=== PATIENT | male | born 1995 | race Caucasian/White ===

== ENCOUNTER 2020-11-23 15:30 | Emergency (ER) | payer MEDICAID ==
[2020-11-23] MEDS ORDERED: Sodium Chloride 0.9% 10 ML Syringe FLUSH PRN (17:20)
--- NOTE | 2020-11-23 17:33 | EDM.PDOC ---
ED HPI GENERAL MEDICAL PROBLEM - General Chief Complaint: Gastrointestinal Problem Stated Complaint: BLOOD AND MUCUS IN STOOL/ABD PAIN Time Seen by Provider: 11/23/20 16:52 Source of Information: Reports: Patient History Limitations: Reports: No Limitations - History of Present Illness INITIAL COMMENTS - FREE TEXT/NARRATIVE: 25-year-old male presents emergency department with complaints of abdominal pain after he was seen at [facility] today. Patient states he has about a 2-1/2-year history of loose stools with blood and mucus noted. He states that 2-1/2 years ago when he was in [place] he had mucus and blood noted in his stools and he had an EGD and colonoscopy and they diagnosed him with H. pylori. He said he was treated with antibiotics for this and they told him his infection had resolved however he still has been having mucousy/bloody stools. He recently moved to [place] about 4 months ago and states that over the course of the past 2 days he has developed generalized abdominal pain specifically in the left upper and left lower quadrant and has noted more blood and mucus in his stools. He denies any recent fever chills however he has had nausea and vomiting over the course of about the past week. He also states he has had decreased appetite and has had to force himself to eat. He also states he has a history of hypothyroidism for which he was on thyroid medication for about 2 months however he had it rechecked and it had resolved so they told him to quit taking it. Patient was seen at [facility] today and it was noted that a CBC was completed which showed he had a white count of 13.5, hemoglobin 15.6, hematocrit 44.6, segmented neutrophils 9.6, urinalysis was unremarkable and no other lab work was completed. abd Pain Score (Numeric/FACES): 5 - Related Data Allergies Allergy/AdvReac Type Severity Reaction Status Date / Time No Known Allergies Allergy Verified 11/23/20 16:18 Home Meds: Home Meds Omeprazole 40 mg PO DAILY 11/23/20 [History] Past Medical History Gastrointestinal History: Reports: Helicobacter Pylori Social & Family History - Tobacco Use Tobacco Use Status *Q: Current Every Day Tobacco User Years of Tobacco use: 11 Packs/Tins Daily: 1 - Recreational Drug Use Recreational Drug Use: No ED ROS GENERAL - Review of Systems Review Of Systems: See Below Constitutional: Reports: Decreased Appetite. Denies: Fever, Chills, Diaphoresis HEENT: Reports: No Symptoms Respiratory: Reports: No Symptoms Cardiovascular: Reports: Palpitations. Denies: Chest Pain, Edema, Lightheadedness Endocrine: Reports: Fatigue GI/Abdominal: Reports: Abdominal Pain (Left upper left lower quadrant), Diarrhea, Decreased Appetite, Nausea, Vomiting : Reports: No Symptoms Musculoskeletal: Reports: No Symptoms Skin: Reports: No Symptoms Neurological: Reports: No Symptoms. Denies: Headache Psychiatric: Reports: No Symptoms Hematologic/Lymphatic: Reports: No Symptoms Immunologic: Reports: No Symptoms ED EXAM, GI/ABD - Physical Exam Exam: See Below Exam Limited By: No Limitations General Appearance: Alert, WD/WN, No Apparent Distress Ears: Normal External Exam, Hearing Grossly Normal Nose: Normal Inspection Throat/Mouth: Normal Inspection, Normal Lips, Normal Voice, No Airway Compromise Head: Atraumatic, Normocephalic Neck: Normal Inspection, Supple, Non-Tender, Full Range of Motion Respiratory/Chest: No Respiratory Distress, Lungs Clear, Normal Breath Sounds, No Accessory Muscle Use, Chest Non-Tender Cardiovascular: Normal Peripheral Pulses, Regular Rate, Rhythm, No Edema, No Murmur GI/Abdominal Exam: Normal Bowel Sounds, Soft, No Distention, Tender (Left upper left lower quadrant). No: Rigid, Rebound (Male) Exam: Deferred Rectal (Males) Exam: Deferred Back Exam: Normal Inspection, Full Range of Motion Extremities: Normal Inspection, Normal Range of Motion, Non-Tender, No Pedal Edema, Normal Capillary Refill Neurological: Alert, Oriented, Normal Cognition Psychiatric: Normal Affect, Normal Mood Skin Exam: Warm, Dry, Intact, Normal Color, No Rash Lymphatic: No Adenopathy Course - Vital Signs Text/Narrative:: 25-year-old male with 2-1/2-year history of mucus and blood noted in his stools. States that over the course of the past 2 days he has had increased nausea and vomiting and increased mucus blood noted in his stool. States he developed abdominal pain over the course the past 2 days primarily in the left upper and lower quadrant. Patient denies any history of ulcerative colitis or Crohn's dis ease. He states he does have a history of hypothyroidism and Raynaud's disease. I have ordered labs, IV fluids the patient has not been eating or drinking much as of recent, and a CT of the abdomen and pelvis. Also ordered stool for C. difficile and stool cultures. Last Recorded V/S: Last Vital Signs Temp 98.6 F 11/23/20 16:15 Pulse 80 11/23/20 16:15 Resp 17 11/23/20 16:15 BP 150/91 H 11/23/20 16:15 Pulse Ox 98 11/23/20 16:15 - Orders/Labs/Meds Orders: Active Orders 24 hr Category Date Time Status C DIFFICILE PCR W/REFLEX [MOLEC] Stat Lab 11/23/20 17:20 Ordered STOOL CULTURE/SHIGA TOXIN [MREF] Stat Lab 11/23/20 17:20 Ordered Sodium Chloride 0.9% [Saline Flush] Med 11/23/20 18:15 Active 10 ml FLUSH ASDIRECTED Sodium Chloride 0.9% [Saline Flush] Med 11/23/20 17:20 Active 10 ml FLUSH ASDIRECTED PRN Saline Lock Insert [OM.PC] Stat Oth 11/23/20 17:20 Ordered Medication Orders Sodium Chloride (Sodium Chloride 0.9% 10 Ml Syringe) 10 ml FLUSH ASDIRECTED PRN PRN Reason: Keep Vein Open Last Admin: 11/23/20 17:39 Dose: 10 ml Documented by: LACIE Sodium Chloride (Sodium Chloride 0.9% 10 Ml Syringe) 10 ml FLUSH ASDIRECTED BA Last Admin: 11/23/20 19:20 Dose: 10 ml Documented by: OPAL Labs: Laboratory Tests 11/23/20 11/23/20 Range/Units 17:30 17:30 WBC 12.36 H (4.23-9.07) K/mm3 RBC 5.08 (4.63-6.08) M/mm3 Hgb 15.6 (13.7-17.5) gm/dl Hct 45.8 (40.1-51.0) % MCV 90.2 (79.0-92.2) fl MCH 30.7 (25.7-32.2) pg MCHC 34.1 (32.2-35.5) g/dl RDW Std Deviation 42.8 (35.1-43.9) fL Plt Count 323 (163-337) K/mm3 MPV 9.2 L (9.4-12.3) fl Neut % (Auto) 68.2 H (34.0-67.9) % Lymph % (Auto) 21.4 L (21.8-53.1) % Mcnairy % (Auto) 4.8 L (5.3-12.2) % Eos % (Auto) 4.9 (0.8-7.0) Baso % (Auto) 0.6 (0.1-1.2) % Neut # (Auto) 8.43 H (1.78-5.38) K/mm3 Lymph # (Auto) 2.64 (1.32-3.57) K/mm3 Mcnairy # (Auto) 0.59 (0.30-0.82) K/mm3 Eos # (Auto) 0.61 H (0.04-0.54) K/mm3 Baso # (Auto) 0.08 (0.01-0.08) K/mm3 Manual Slide Review Normal smear Sodium 140 (136-145) mEq/L Potassium 3.9 (3.5-5.1) mEq/L Chloride 100 (98-107) mEq/L Carbon Dioxide 30 (21-32) mEq/L Anion Gap 13.9 (5-15) BUN 13 (7-18) mg/dL Creatinine 1.1 (0.7-1.3) mg/dL Est Cr Clr Drug Dosing 107.44 mL/min Estimated GFR (MDRD) > 60 (>60) mL/min BUN/Creatinine Ratio 11.8 L (14-18) Glucose 91 (74-106) mg/dL Calcium 9.0 (8.5-10.1) mg/dL Magnesium 2.1 (1.8-2.4) mg/dl Total Bilirubin 1.1 H (0.2-1.0) mg/dL AST 37 (15-37) U/L ALT 59 (16-63) U/L Alkaline Phosphatase 73 (46-116) U/L C-Reactive Protein 0.3 (<1.0) mg/dL Total Protein 7.8 (6.4-8.2) g/dl Albumin 4.4 (3.4-5.0) g/dl Globulin 3.4 gm/dL Albumin/Globulin Ratio 1.3 (1-2) TSH 3rd Generation 3.320 (0.358-3.74) uIU/mL Meds: Medications Generic Name Dose Route Start Last Admin Trade Name Freq PRN Reason Stop Dose Admin Sodium Chloride 10 ml 11/23/20 17:20 11/23/20 17:39 Sodium Chloride 0.9% 10 Ml Syringe FLUSH 10 ml ASDIRECTED PRN Administration Keep Vein Open Sodium Chloride 10 ml 11/23/20 18:15 11/23/20 19:20 Sodium Chloride 0.9% 10 Ml Syringe FLUSH 10 ml ASDIRECTED BA Administration Discontinued Medications Generic Name Dose Route Start Last Admin Trade Name Freq PRN Reason Stop Dose Admin Diatrizoate Meglum/Diatrizoate Sod 120 ml 11/23/20 18:17 11/23/20 19:19 Diatrizoate Meglumine/Diatrizoate Sodium 37% 120 Ml Bottle PO 11/23/20 18:18 30 ml ONETIME ONE Administration Iopamidol 100 ml 11/23/20 18:15 11/23/20 19:19 Iopamidol 612 Mg/Ml 100 Ml Bottle IVPUSH 11/23/20 18:16 100 ml ONETIME ONE Administration - Re-Assessments/Exams Free Text/Narrative Re-Assessment/Exam: 11/23/20 19:[address] abdomen and pelvis: 1. Nothing acute is appreciated on CT study of the abdomen and pelvis. 11/23/20 19:42 Hematology reveals a WBC of 12.36, hemoglobin 15.6, hematocrit 45.8, chemistry reveals a sodium of 140, potassium 3.9, anion gap 13.9, BUN 13, creatinine 1.1, glucose 91, magnesium 2.1, total bilirubin 1.1, AST 37, ALT 59, alk phos 73, C- reactive protein 0.3, TSH 3.320. 11/23/20 19:50 Patient was unable to provide us with a stool sample. He states that [facility] did provide him with sample collection and an order is in their system for him to bring in a stool sample. He will be discharged to home with recommendations he follow-up with a primary care physician next week. Departure - Departure Time of Disposition: 19:56 Disposition: Home, Self-Care 01 Condition: Good Clinical Impression: Abdominal pain in male - Discharge Information Referrals: PCP,None [Primary Care Provider] - Forms: ED Department Discharge Additional Instructions: You were seen in the emergency department today with complaints of abdominal pain and an elevated white blood cell count after being seen at [facility]. Further labs were completed as well as a CT scan of the abdomen. These were all essentially unremarkable. However, I would strongly recommend that you obtain a stool sample and take that to [facility] as you said they already had given you supplies to do so. Also strongly recommend that you follow-up with a primary care physician and you did state that you were given recommendations for one at [facility]. Recommend that you follow-up next week for further evaluations of your issues with bloody and mucousy stools. Should your condition worsen or change do not hesitate returning to the emergency department. Sepsis Event Note (ED) - Evaluation Sepsis Screening Result: No Definite Risk - Focused Exam Vital Signs: Vital Signs Temp Pulse Resp BP Pulse Ox 11/23/20 16:15 98.6 F 80 17 150/91 H 98 - My Orders Last 24 Hours: My Active Orders 11/23/20 17:20 C DIFFICILE PCR W/REFLEX [MOLEC] Stat STOOL CULTURE/SHIGA TOXIN [MREF] Stat Sodium Chloride 0.9% [Saline Flush] 10 ml FLUSH ASDIRECTED PRN Saline Lock Insert [OM.PC] Stat 11/23/20 18:15 Sodium Chloride 0.9% [Saline Flush] 10 ml FLUSH ASDIRECTED - Assessment/Plan Last 24 Hours: My Active Orders 11/23/20 17:20 C DIFFICILE PCR W/REFLEX [MOLEC] Stat STOOL CULTURE/SHIGA TOXIN [MREF] Stat Sodium Chloride 0.9% [Saline Flush] 10 ml FLUSH ASDIRECTED PRN Saline Lock Insert [OM.PC] Stat 11/23/20 18:15 Sodium Chloride 0.9% [Saline Flush] 10 ml FLUSH ASDIRECTED
[2020-11-23] MEDS ORDERED: Iopamidol 612 MG/ML 100 ML Bottle IVPUSH ONE (18:15)
[2020-11-23] MEDS ORDERED: Sodium Chloride 0.9% 10 ML Syringe FLUSH SCH (18:15)
[2020-11-23] MEDS ORDERED: Diatrizoate Meglumine/Diatrizoate Sodium 37% 120 ML Bottle PO ONE (18:17)
--- NOTE | 2020-11-23 19:33 | CT ---
CT abdomen and pelvis Technique: Multiple axial sections were obtained from above the dome of the diaphragm inferiorly through the pubic symphysis. Intravenous contrast and oral contrast was utilized. Delayed images were also obtained through the bladder. Reconstructed coronal and sagittal images were also obtained. Comparison: No prior CT abdomen and pelvis study is available. Findings: Visualized lung bases show nothing acute. Liver contains no focal parenchymal abnormality. Gallbladder shows no calcified gallstones. Spleen appears within normal limits. Adrenal glands show no nodule. Pancreas shows no discrete abnormality. Kidneys show symmetric contrast enhancement with no hydronephrosis or mass. Abdominal aorta shows no aneurysm. No retroperitoneal adenopathy or mesenteric abnormalities are seen. Appendix is not visualized. No pelvic mass or adenopathy is seen. No free fluid or inflammatory change is appreciated. Stool is noted within the right colon but no other abnormal amounts of stool are seen. Delayed images show contrast within both distal ureters as well as within the bladder. Bone window settings were reviewed which show incidental findings. No acute osseous abnormality is appreciated. Impression: 1. Nothing acute is appreciated on CT study of the abdomen and pelvis. Diagnostic code #1
== END 2020-11-23 20:13 | disposition home or self-care (01) ==
LOC: JD.ED 15:30
DX: R10.32 Left lower quadrant pain (principal); R10.12 Left upper quadrant pain; Z72.0 Tobacco use
CPT/HCPCS: 36415; 74177; 80053; 83735; 84443; 85025; 86140; 99284; Q9963; Q9967

== ENCOUNTER 2022-05-08 19:10 | Emergency (ER) | payer BC, MEDICAID ==
[2022-05-08] MEDS ORDERED: Sodium Chloride 0.9% 10 ML Syringe FLUSH PRN (19:12)
[2022-05-08] MEDS ORDERED: Pantoprazole 40 MG Vial IVPUSH ONE (19:14)
[2022-05-08] MEDS ORDERED: Sodium Chloride 0.9% 1,000 ML IV ONE (19:20)
[2022-05-08] MEDS ORDERED: Sodium Chloride 0.9% 1,000 ML IV SCH (19:30)
[2022-05-08] MEDS ORDERED: Iopamidol 612 MG/ML 100 ML Bottle IVPUSH ONE (19:33)
[2022-05-08] MEDS ORDERED: Sodium Chloride 0.9% 250 ML ONE (19:50)
[2022-05-08] MEDS ORDERED: Famotidine 20 MG/2 ML SDV IVPUSH ONE (20:01)
[2022-05-08] MEDS ORDERED: HYDROmorphone 0.5 MG/0.5 ML Syringe IVPUSH ONE (20:01)
[2022-05-08] MEDS ORDERED: Metoclopramide 10 MG/2 ML SDV IVPUSH ONE (20:43)
== END 2022-05-08 22:35 ==
LOC: JD.ED 19:10
DX: K29.01 Acute gastritis with bleeding (principal); K92.0 Hematemesis; Z20.822 Contact with and (suspected) exposure to COVID-19
CPT/HCPCS: 36415; 36430; 74177; 80053; 80307; 83690; 85025; 85610; 85730; 86850; 86900; 86901; 86922; 87635; 96361; 96374; 96375; 99285; C9113; J1170; J2765; J3490; J7030; P9016; Q9967; U0002

== ENCOUNTER 2022-05-15 17:28 | Emergency (ER) | payer BC ==
[2022-05-15] MEDS ORDERED: fentaNYL 100 MCG/2 ML SDV IVPUSH ONE ×2 (18:15→23:05)
[2022-05-15] MEDS ORDERED: Iopamidol 755 Mg/ML 100 ML Bottle IVPUSH ONE (19:29)
[2022-05-15] MEDS ORDERED: Sodium Chloride 0.9% 10 ML Syringe FLUSH PRN (19:29)
[2022-05-15] MEDS ORDERED: Sodium Chloride 0.9% 100 ML IV SCH (19:30)
[2022-05-15] MEDS ORDERED: Pantoprazole 40 MG Vial IVPUSH ONE (22:00)
== END 2022-05-15 23:45 ==
LOC: JD.ED 17:28
DX: K29.01 Acute gastritis with bleeding (principal); D64.9 Anemia, unspecified; Z88.8 Allergy status to other drugs, medicaments and biological substances
CPT/HCPCS: 36415; 71275; 80053; 84484; 85014; 85018; 85025; 85610; 93005; 96361; 96374; 96375; 96376; 99285; C9113; J3010; J3490; Q9967; 93010; 99284

== ENCOUNTER 2022-05-20 16:07 | Emergency (ER) | payer BC ==
[2022-05-20] MEDS ORDERED: Morphine 4 MG/ML Syringe IVPUSH ONE (17:38)
[2022-05-20] MEDS ORDERED: Ondansetron 4 MG/2 ML SDV IVPUSH ONE (17:38)
[2022-05-20] MEDS ORDERED: Sodium Chloride 0.9% 1,000 ML IV SCH (17:45)
== END 2022-05-20 22:56 | disposition home or self-care (01) ==
LOC: JD.ED 16:07
DX: R10.11 Right upper quadrant pain (principal); I10 Essential (primary) hypertension; Z88.8 Allergy status to other drugs, medicaments and biological substances; Z87.891 Personal history of nicotine dependence; Z86.16 Personal history of COVID-19
CPT/HCPCS: 36415; 71275; 71275-26; 74177; 74177-26; 80053; 83690; 84484; 85014; 85018; 85025; 93005; 93010; 93971-26-LT; 93971-LT; 96361; 96374; 96375; 99284; 99285-25; J2270; J2405; J7030

== ENCOUNTER 2022-06-07 16:33 | Emergency (ER) | payer BC | END 2022-06-07 19:55 | disposition home or self-care (01) | LOC: JD.ED 16:33 | DX: R31.9 Hematuria, unspecified (principal); I10 Essential (primary) hypertension; Z88.8 Allergy status to other drugs, medicaments and biological substances; Z86.16 Personal history of COVID-19 | CPT/HCPCS: 36415; 74018; 74018-26; 80053; 81001; 85025; 99283; 99284 ==

== ENCOUNTER 2024-02-09 15:12 | Emergency (ER) | payer BC ==
[2024-02-09 17:04] LABS: BASOPHILS ABSOLUTE AUTO 0.1 K/mm3 (0.0-0.2); EOSINOPHILS ABSOLUTE AUTO 0.2 K/mm3 (0.0-0.4); EOSINOPHILS PERCENT AUTO 2.4 % (0.0-6.0); HEMATOCRIT 48.1 % (42.0-52.0); IMMATURE GRAN ABSOLUTE AUTO 0.02 K/mm3 (0.00-0.05); IMMATURE GRAN PERCENT AUTO 0.2 % (0.0-0.4); LYMPHOCYTES ABSOLUTE AUTO 2.3 K/mm3 (1.0-4.8); LYMPHOCYTES PERCENT AUTO 26.7 % (24.0-44.0); MEAN CORPUSCULAR HEMOGLOBIN 31.1 pg (28.0-32.0); MEAN CORPUSCULAR HGB CONC 35.3 g/dl (32.0-36.0); MEAN CORPUSCULAR VOLUME 88.1 fl (83.0-99.0); MEAN PLATELET VOLUME 8.9 fl (9.4-12.4); MONOCYTES ABSOLUTE AUTO 0.6 K/mm3 (0.0-0.8); NEUTROPHILS ABSOLUTE AUTO 5.5 K/mm3 (1.8-7.7); NEUTROPHILS PERCENT AUTO 62.7 % (41.0-71.0); PLATELET COUNT,PLT 346 K/mm3 (150-400); RED BLOOD CELL COUNT 5.46 M/mm3 (4.52-5.90)
[2024-02-09 17:30] LABS: A/G RATIO 1.4 (1-2); ALBUMIN 4.2 g/dl (3.4-5.0); BUN/CREATININE RATIO 8.3 (14-18); C-REACTIVE PROTEIN 0.14 mg/dL (<0.30); CREATININE 1.2 mg/dL (0.7-1.3); EST CRCL DRUG DOSING (CG) 95.87 mL/min; MAGNESIUM 1.7 mg/dL (1.8-2.4); PROTEIN TOTAL,TP 7.3 g/dl (6.4-8.2); TSH 3.068 uIU/mL (0.358-3.74)
[2024-02-09] MEDS: LORazepam 2 MG/ML SDV IVPUSH ONE ×2 (17:51→19:37)
[2024-02-09] MEDS: Sodium Chloride 0.9% 1,000 ML IV SCH (17:51)
[2024-02-09] MEDS: LORazepam 2 MG/ML SDV IM ONE (21:27)
== END 2024-02-09 23:14 | disposition home or self-care (01) ==
LOC: JD.ED 15:12
DX: G47.00 Insomnia, unspecified (principal); F41.9 Anxiety disorder, unspecified; F17.210 Nicotine dependence, cigarettes, uncomplicated; I10 Essential (primary) hypertension; Z79.899 Other long term (current) drug therapy; Z88.5 Allergy status to narcotic agent
CPT/HCPCS: 36415; 71045; 80053; 83605; 83735; 84443; 84484; 85025; 86140; 93005; 96361; 96372; 96374; 96376; 99285; J2060; J7030

== ENCOUNTER 2024-11-24 13:07 | Emergency (ER) | payer BC ==
[2024-11-24] MEDS ORDERED: Sodium Chloride 0.9% 10 ML Syringe FLUSH PRN (13:36)
[2024-11-24 14:28] LABS: BASOPHILS ABSOLUTE AUTO 0.1 K/mm3 (0.0-0.2); BASOPHILS PERCENT AUTO 1.2 % (0.0-1.0); EOSINOPHILS ABSOLUTE AUTO 0.5 K/mm3 (0.0-0.4); HEMATOCRIT 45.1 % (42.0-52.0); HEMOGLOBIN 15.5 gm/dl (14.0-18.0); IMMATURE GRAN ABSOLUTE AUTO 0.03 K/mm3 (0.00-0.05); IMMATURE GRAN PERCENT AUTO 0.4 % (0.0-0.4); LYMPHOCYTES ABSOLUTE AUTO 2.6 K/mm3 (1.0-4.8); LYMPHOCYTES PERCENT AUTO 34.1 % (24.0-44.0); MEAN CORPUSCULAR HGB CONC 34.4 g/dl (32.0-36.0); MEAN CORPUSCULAR VOLUME 87.2 fl (83.0-99.0); MONOCYTES ABSOLUTE AUTO 0.7 K/mm3 (0.0-0.8); MONOCYTES PERCENT AUTO 9.1 % (0.0-8.0); NEUTROPHILS ABSOLUTE AUTO 3.7 K/mm3 (1.8-7.7); NEUTROPHILS PERCENT AUTO 49.2 % (41.0-71.0); PLATELET COUNT,PLT 269 K/mm3 (150-400); RED BLOOD CELL COUNT 5.17 M/mm3 (4.52-5.90); WHITE BLOOD CELL COUNT,WBC 7.51 K/mm3 (3.9-11.3)
[2024-11-24 14:57] LABS: A/G RATIO 1.2 (1-2); ALBUMIN 3.7 g/dl (3.4-5.0); ANION GAP 14.5 (5-15); BILIRUBIN TOTAL 1.5 mg/dL (0.2-1.0); BUN/CREATININE RATIO 10.9 (14-18); CALCIUM 8.6 mg/dL (8.5-10.1); CREATININE 1.1 mg/dL (0.7-1.3); EST CRCL DRUG DOSING (CG) 103.63 mL/min; POTASSIUM,K 3.5 mEq/L (3.5-5.1); PROTEIN TOTAL,TP 6.7 g/dl (6.4-8.2)
== END 2024-11-24 15:25 | disposition home or self-care (01) ==
LOC: JD.ED 13:07
DX: R07.9 Chest pain, unspecified (principal); T50.8X5A Adverse effect of diagnostic agents, initial encounter; I10 Essential (primary) hypertension; F17.210 Nicotine dependence, cigarettes, uncomplicated; Z88.5 Allergy status to narcotic agent; Z79.899 Other long term (current) drug therapy
CPT/HCPCS: 36415; 71046; 71046-26; 80053; 84484; 85025; 85379; 93005; 93010; 99283; 99285

== ENCOUNTER 2025-01-26 15:36 | Emergency (ER) | payer OTHER, BC ==
[2025-01-26] MEDS: Acetaminophen 325 MG Tab PO ONE (16:50)
[2025-01-26] MEDS: Ketorolac 60 MG/2 ML SDV IM ONE (16:50)
== END 2025-01-26 16:51 | disposition home or self-care (01) ==
LOC: JD.ED 15:36
DX: S13.4XXA Sprain of ligaments of cervical spine, initial encounter (principal); M62.838 Other muscle spasm; M62.830 Muscle spasm of back; I10 Essential (primary) hypertension; Z79.899 Other long term (current) drug therapy; Z88.1 Allergy status to other antibiotic agents; V49.40XA Driver injured in collision with unspecified motor vehicles in traffic accident, initial encounter; Y92.410 Unspecified street and highway as the place of occurrence of the external cause
CPT/HCPCS: 96372; 99283; A9270; J1885; 99284

== ENCOUNTER 2025-05-18 20:59 | Emergency (ER) | payer OTHER, BC ==
[2025-05-18] MEDS: Ketorolac 30 MG/ML SDV IM ONE (22:33)
== END 2025-05-18 22:46 | disposition home or self-care (01) ==
LOC: JD.ED 20:59
DX: S68.121A Partial traumatic metacarpophalangeal amputation of left index finger, initial encounter (principal); I10 Essential (primary) hypertension; Z88.8 Allergy status to other drugs, medicaments and biological substances; Z79.899 Other long term (current) drug therapy; W26.8XXA Contact with other sharp object(s), not elsewhere classified, initial encounter; Y93.89 Activity, other specified
CPT/HCPCS: 73140-26-F1; 73140-F1; 96372; 99283; J0690; J1885